=== PATIENT | male | born 1995 | race African-American/Black ===

== ENCOUNTER 2023-10-22 19:40 | Emergency (ER) | payer SELFPAY, OTHER ==
[2023-10-22] MEDS ORDERED: Boostrix 0.5 ML (Tdap) VIAL (>/=7 yrs of age) ONE (22:11)
[2023-10-22] MEDS ORDERED: HYDROcodone/Acetaminophen 5/325 mg Tablet ONE (22:29)
== END 2023-10-22 22:37 | disposition home or self-care (01) ==
LOC: ERS 19:40
DX: S46.912A Strain of unspecified muscle, fascia and tendon at shoulder and upper arm level, left arm, initial encounter (principal); S80.811A Abrasion, right lower leg, initial encounter; S00.81XA Abrasion of other part of head, initial encounter; S00.412A Abrasion of left ear, initial encounter; S40.212A Abrasion of left shoulder, initial encounter; L02.11 Cutaneous abscess of neck; I10 Essential (primary) hypertension; V89.2XXA Person injured in unspecified motor-vehicle accident, traffic, initial encounter; W22.11XA Striking against or struck by driver side automobile airbag, initial encounter; Z23 Encounter for immunization
CPT/HCPCS: 71045; 90471; 90715